=== PATIENT | female | born 1995 | race American Indian/Alaskan Native ===

== ENCOUNTER 2017-10-27 17:12 | Emergency (ER) | payer SELFPAY ==
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
[2017-10-27] MEDS ORDERED: GEODON IM ONE (19:32)
[2017-10-27] MEDS ORDERED: WATER FOR INJ (PF) ONE (19:42)
[2017-10-27 20:47] LABS: Basophils # (Auto) 0.1 K/mm3 (0.0-0.1); Basophils % (Auto) 0.8 % (0.0-1.8); Eosinophils % (Auto) 0.6 % (0.0-4.3); Hematocrit 41.9 % (30.3-42.9); Lymphocytes # (Auto) 2.6 K/mm3 (1.2-5.4); Lymphocytes % (Auto) 35.3 % (13.4-35.0); Mean Corpuscular HGB Conc 33 % (30-34); Mean Corpuscular Hemoglobin 29 pg (28-32); Mean Corpuscular Volume 88 fl (79-97); Monocytes # (Auto) 0.7 K/mm3 (0.0-0.8); Platelet Count 250 K/mm3 (140-440); Red Blood Count 4.78 M/mm3 (3.65-5.03); Red Cell Distribution Width 15.8 % (13.2-15.2)
[2017-10-27 20:59] LABS: BUN/Creatinine Ratio 14; Blood Urea Nitrogen 7 mg/dL (7-17); Calcium 9.6 mg/dL (8.4-10.2); Hemolysis Index 102
[2017-10-27 21:07] LABS: Amphetamine Screen,Urine PRESUMPTIVE NEGATIVE; Benzodiazepines Screen,Urine PRESUMPTIVE NEGATIVE; Cocaine Screen,Urine PRESUMPTIVE NEGATIVE; Methadone Screen,Urine PRESUMPTIVE NEGATIVE; Opiate Screen,Urine PRESUMPTIVE NEGATIVE
[2017-10-27 21:10] LABS: Bilirubin,Urine NEG (Negative); Blood,Urine NEG (Negative); Color,Urine Yellow (Yellow); Mucus,Urine 2+ /HPF; Protein,Urine <15 mg/dL mg/dL (Negative); Urobilinogen,Urine < 2.0 mg/dL (<2.0)
[2017-10-27 21:19] LABS: Cannabinoid Screen,Urine PRESUMPTIVE POSITIVE
[2017-10-28] MEDS ORDERED: HALDOL IM ONE (03:46)
[2017-10-28] MEDS ORDERED: HALDOL ONE (03:48)
[2017-10-28] MEDS ORDERED: ATIVAN ONE (03:48)
[2017-10-28] MEDS ORDERED: ATIVAN IM ONE ×2 (04:00→16:51)
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
[2017-10-29] MEDS ORDERED: GEODON IM ONE ×2 (09:43→09:47)
--- NOTE | 2017-10-29 13:33 | Progress Note ---
Subjective - Reason for Consult Consult date: 10/29/17 Reason for consult: Psychiatry Follow-up - Chief Complaint Chief complaint: "I wanted to be naked" 22-year-old -[place]is[place] female that presents to the emergency department via police from her home for a mental health evaluation. Today the patient is calm and cooperative, but tangent during the assessment. She stated that she had not slept for several days prior to her arrival to the ER. She acknowledged that she had "lots of energy" during this time. During the interview, the patient is tangent and hyper jain. Her answers to most questions were not logical. She denies SI/HI' and AVH's. She denies any side effects of her medication. Mental Status Exam - Vital signs Last Vital Signs Temp 98.8 F 10/29/17 09:00 Pulse 104 H 10/29/17 09:00 Resp 16 10/29/17 09:00 BP 119/86 10/29/17 09:00 Pulse Ox 98 10/29/17 09:00 - Exam Narrative exam: MSE: Appearance: calm, cooperative Behavior: regular eye contact Speech: regular rate and tone Mood: "well" Affect: constricted Thought Process: tangential Thought Content: denies SI/HI's and AVH's, hyper jain Motor Activity: ambulatory Cognition: A/O x 3 Insight: poor Judgment: poor Assessment and Plan Impression: Unspecified Psychosis. Cannabis Use DO. Today the patient is calm and cooperative, but tangent during the assessment. DDx: Bipolar DO with psychosis, R/O Substance Induced psychosis Recommendation/Plan: Continue 1013 with placement to inpatient psy services. Continue Seroquel 200 mg PO HS for mood/psychosis. Discussed possible metabolic side effects of Seroquel with the patient.
[2017-10-30] MEDS ORDERED: GEODON IM ONE ×2 (09:59→20:05)
[2017-10-30] MEDS ORDERED: WATER FOR INJ (PF) ONE (10:08)
--- NOTE | 2017-10-30 11:02 | Emergency Department Report ---
Blank Doc - Documentation Documentation: Just prior to my arrival on shift, the patient was witnessed running out of the emergency department without any clothes attempting to climb a flag pole. We were able to get her back into the emergency department. She still appears to be having active psychosis. She is hyperverbal, tangential. She was given Geodon for her safety. She is being restrained with soft wrist restraints until the Geodon starts to work and then she will be removed from the wrist restraints. The patient was seen after this was initiated and does not appear to be in any physical distress. Vital signs stable. We'll continue to monitor the patient as we await for inpatient psychiatric placement.
[2017-10-30 12:06] LABS: Alanine Aminotransferase 15 units/L (7-56); Lipase 25 units/L (13-60)
--- NOTE | 2017-10-30 14:33 | Progress Note ---
Subjective - Reason for Consult Consult date: 10/30/17 Reason for consult: Psychiatry Follow-up - Chief Complaint Chief complaint: "I am here fro help" 22-year-old -[place] female that presents to the emergency department via police from her home for a mental health evaluation. Today the patient is calm and cooperative, but tangent during the assessment. She stated that she only came to the hospital to get some help. She could not explain what type of help she needed when asked. She continue to be hyper taoist with loose associations. She denies SI/HI's and AVH's. No indications of side effects of her medications. Mental Status Exam - Vital signs Last Vital Signs Temp 97.9 F 10/29/17 19:36 Pulse 88 10/29/17 19:36 Resp 12 10/29/17 19:36 BP 119/84 10/29/17 19:36 Pulse Ox 100 10/29/17 19:36 - Exam Narrative exam: MSE: Appearance: calm, cooperative Behavior: regular eye contact Speech: regular rate and tone Mood: labile Affect: constricted Thought Process: tangential, loose associations Thought Content: denies SI/HI's and AVH's, hyper taoist Motor Activity: ambulatory Cognition: A/O x 3 Insight: poor Judgment: poor Assessment and Plan Impression: Unspecified Psychosis. Cannabis Use DO. Today the patient is calm and cooperative, but tangent during the assessment. DDx: Bipolar DO with psychosis, R/O Substance Induced psychosis Recommendation/Plan: Continue 1013 with placement to inpatient psy services. Increase Seroquel to 300 mg PO HS for mood/psychosis and start Depakote 500 mg PO BID for mood. Discussed possible metabolic side effects of Seroquel with the patient.
[2017-10-30] MEDS ORDERED: ATIVAN IM ONE (19:26)
[2017-10-31 11:18] VITALS: BP 108/77
== END 2017-10-31 21:48 ==
LOC: EEVIPCON 17:12 → ED 17:12
DX: F23 Brief psychotic disorder (principal); F12.10 Cannabis abuse, uncomplicated
CPT/HCPCS: 36415; 80048; 80164; 80307; 81001; 82150; 83690; 84075; 84450; 84460; 84703; 85025; 96372; 99285; G0480; J1630; J2060; J3486; 80320

== ENCOUNTER 2021-07-24 18:25 | Emergency (ER) | payer OTHER ==
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
[2021-07-24 19:44] LABS: Basophils % (Auto) 0.6 % (0.0-1.8); Eosinophils % (Auto) 0.4 % (0.0-4.3); Hemoglobin 12.5 gm/dl (10.1-14.3); Lymphocytes # (Auto) 2.3 K/mm3 (1.2-5.4); Lymphocytes % (Auto) 32.2 % (13.4-35.0); Mean Corpuscular HGB Conc 33 % (30-34); Mean Corpuscular Volume 85 fl (79-97); Monocytes # (Auto) 0.7 K/mm3 (0.0-0.8); Monocytes % (Auto) 10.2 % (0.0-7.3); Platelet Count 327 K/mm3 (140-440); Red Blood Count 4.48 M/mm3 (3.65-5.03); Red Cell Distribution Width 15.3 % (13.2-15.2)
[2021-07-24 19:56] LABS: BUN/Creatinine Ratio 10; Blood Urea Nitrogen 8 mg/dL (7-17); Calcium 9.6 mg/dL (8.4-10.2); Hemolysis Index 5
[2021-07-24 20:06] LABS: Bilirubin,Urine NEG (Negative); Blood,Urine NEG (Negative); Color,Urine Yellow (Yellow); Urobilinogen,Urine < 2.0 mg/dL (<2.0)
[2021-07-24 20:14] LABS: Mucus,Urine 3+ /HPF
[2021-07-24 20:15] LABS: Amphetamine Screen,Urine Negative; Benzodiazepines Screen,Urine Negative; Cocaine Screen,Urine Negative; Methadone Screen,Urine Negative; Opiate Screen,Urine Negative
[2021-07-24 20:49] LABS: Cannabinoid Screen,Urine Positive
[2021-07-24] MEDS ORDERED: diphenhydrAMINE 50 MG/ML VIAL IM PRN (21:50)
[2021-07-24] MEDS ORDERED: LORazepam 2 MG/ML VIAL IM PRN (21:50)
[2021-07-24] MEDS ORDERED: LORazepam 1 MG TAB PO ONE (21:50)
[2021-07-24] MEDS ORDERED: HALOPERIDOL LACTATE 5 MG/1 ML INJ IM PRN (21:50)
[2021-07-24 23:39] VITALS: BP 114/78
== END 2021-07-25 09:08 | disposition still patient (30) ==
LOC: EEVIPCON 18:25 → ED 18:25
DX: F32.3 Major depressive disorder, single episode, severe with psychotic features (principal)
CPT/HCPCS: 36415; 80048; 80307; 80320; 81001; 85025; 99284; G0480

== ENCOUNTER 2021-10-30 12:18 | Emergency (ER) | payer OTHER ==
[2021-10-30 12:25] VITALS: BP 121/81
== END 2021-10-30 18:40 | disposition left against medical advice (07) ==
LOC: ED 12:18
DX: R07.89 Other chest pain (principal); Z53.21 Procedure and treatment not carried out due to patient leaving prior to being seen by health care provider